=== PATIENT | male | born 1975 ===

== ENCOUNTER 2019-11-03 21:50 | Emergency (ER) ==
[~2019-11-03] VITALS: Ht 167.6 cm; Wt 117.9 kg
[2019-11-03] MEDS ORDERED: ALLOPURINOL300 MG PO (22:48)
[2019-11-03] MEDS ORDERED: COLCHICINE0.6 M1 PO (22:49)
== END 2019-11-04 01:17 | disposition home or self-care (01) ==
LOC: ED 21:50
DX: S05.51XA Penetrating wound with foreign body of right eyeball, initial encounter (principal); X58.XXXA Exposure to other specified factors, initial encounter
CPT/HCPCS: 65205; 99283-25